=== PATIENT | male | born 1980 | race Caucasian/White ===

== ENCOUNTER → 2024-10-06 | Emergency (ER) | payer OTHER ==
[~2024-10-06] VITALS: Ht 175.3 cm; Wt 80.7 kg
[~2024-10-06] MED LIST: DISCOVISC DISP S1 ML IO; ZOVIRAX800 MG PO
== END | disposition left against medical advice (07) ==
LOC: ER 21:19
DX: Z53.21 Procedure and treatment not carried out due to patient leaving prior to being seen by health care provider (principal)